=== PATIENT | male | born 1950 | race Caucasian/White ===

== ENCOUNTER 2016-12-14 08:41 | Outpatient (CLI) | payer MEDICARE ==
[2016-12-14 09:23] LABS: Anion Gap 14 mmol/L (10-20); BUN (Urea Nitrogen) 17 mg/dL (8.4-25.7); Calc. Creatinine Clearance 0 mL/min (70-130); Calcium 9.5 mg/dL (7.8-10.44); Carbon Dioxide 35 mmol/L (23-31); Chloride 89 mmol/L (98-107); Estimated GFR-MDRD Greater than 90; Glucose 115 mg/dL (80-115); Magnesium 1.6 mg/dL (1.6-2.6); Potassium 3.1 mmol/L (3.5-5.1); Sodium 135 mmol/L (136-145)
== END 2016-12-14 08:42 | disposition home or self-care (01) ==
LOC: MADLAB 08:41
PROVIDERS: ATTEND Specialist
DX: E87.6 Hypokalemia (principal)
CPT/HCPCS: 36415; 80048; 83735

== ENCOUNTER 2016-12-31 13:52 | Outpatient (CLI) | payer MEDICARE ==
[2016-12-31 14:21] LABS: Anion Gap 17 mmol/L (10-20); BUN (Urea Nitrogen) 11 mg/dL (8.4-25.7); Calc. Creatinine Clearance 0 mL/min (70-130); Calcium 9.7 mg/dL (7.8-10.44); Carbon Dioxide 36 mmol/L (23-31); Chloride 85 mmol/L (98-107); Estimated GFR-MDRD Greater than 90; Glucose 81 mg/dL (80-115); Sodium 135 mmol/L (136-145)
[2016-12-31 16:36] LABS: Potassium 2.8 mmol/L (3.5-5.1)
== END 2016-12-31 13:53 | disposition home or self-care (01) ==
LOC: MADLAB 13:52
PROVIDERS: ATTEND Specialist
DX: I11.0 Hypertensive heart disease with heart failure (principal); I50.9 Heart failure, unspecified; I25.119 Atherosclerotic heart disease of native coronary artery with unspecified angina pectoris; R06.02 Shortness of breath
CPT/HCPCS: 36415; 80048

== ENCOUNTER 2017-01-18 08:44 | Outpatient (CLI) | payer MEDICARE ==
[2017-01-18 09:48] LABS: Anion Gap 19 mmol/L (10-20); BUN (Urea Nitrogen) 11 mg/dL (8.4-25.7); Calc. Creatinine Clearance 0 mL/min (70-130); Calcium 9.6 mg/dL (7.8-10.44); Carbon Dioxide 32 mmol/L (23-31); Chloride 89 mmol/L (98-107); Estimated GFR-MDRD 87; Glucose 111 mg/dL (80-115); Sodium 137 mmol/L (136-145)
[2017-01-18 11:13] LABS: Potassium 2.6 mmol/L (3.5-5.1)
== END 2017-01-18 08:45 | disposition home or self-care (01) ==
LOC: MADLAB 08:44
PROVIDERS: ATTEND Specialist
DX: E87.6 Hypokalemia (principal); Z79.52 Long term (current) use of systemic steroids
CPT/HCPCS: 36415; 80048

== ENCOUNTER 2017-02-01 08:58 | Outpatient (CLI) | payer MEDICARE ==
[2017-02-01 09:59] LABS: Anion Gap 18 mmol/L (10-20); BUN (Urea Nitrogen) 9 mg/dL (8.4-25.7); Calc. Creatinine Clearance 0 mL/min (70-130); Calcium 9.4 mg/dL (7.8-10.44); Carbon Dioxide 26 mmol/L (23-31); Chloride 97 mmol/L (98-107); Estimated GFR-MDRD 76; Glucose 127 mg/dL (80-115); Potassium 4.5 mmol/L (3.5-5.1); Sodium 136 mmol/L (136-145)
== END 2017-02-01 08:59 | disposition home or self-care (01) ==
LOC: MADLAB 08:58
PROVIDERS: ATTEND Specialist
DX: I10 Essential (primary) hypertension (principal); Z79.52 Long term (current) use of systemic steroids
CPT/HCPCS: 36415; 80048

== ENCOUNTER 2017-03-12 07:44 | Outpatient (CLI) | payer MEDICARE ==
[2017-03-12 08:42] LABS: Anion Gap 17 mmol/L (10-20); BUN (Urea Nitrogen) 12 mg/dL (8.4-25.7); Calc. Creatinine Clearance 0 mL/min (70-130); Calcium 9.4 mg/dL (7.8-10.44); Carbon Dioxide 35 mmol/L (23-31); Chloride 87 mmol/L (98-107); Estimated GFR-MDRD 84; Glucose 132 mg/dL (80-115); Sodium 136 mmol/L (136-145)
[2017-03-12 10:15] LABS: Potassium 2.9 mmol/L (3.5-5.1)
== END 2017-03-12 07:45 | disposition home or self-care (01) ==
LOC: MADLAB 07:44
PROVIDERS: ATTEND Specialist
DX: I25.10 Atherosclerotic heart disease of native coronary artery without angina pectoris (principal); I10 Essential (primary) hypertension; R06.02 Shortness of breath; R53.83 Other fatigue
CPT/HCPCS: 36415; 80048

== ENCOUNTER 2017-05-23 08:57 | Outpatient (CLI) | payer MEDICARE ==
[2017-05-23 09:46] LABS: Anion Gap 19 mmol/L (10-20); BUN (Urea Nitrogen) 14 mg/dL (8.4-25.7); Calc. Creatinine Clearance 0 mL/min (70-130); Calcium 9.6 mg/dL (7.8-10.44); Carbon Dioxide 29 mmol/L (23-31); Chloride 90 mmol/L (98-107); Estimated GFR-MDRD 66; Glucose 169 mg/dL (80-115); Potassium 3.2 mmol/L (3.5-5.1); Sodium 135 mmol/L (136-145)
== END 2017-05-23 08:58 | disposition home or self-care (01) ==
LOC: MADLAB 08:57
PROVIDERS: ATTEND Specialist
DX: I10 Essential (primary) hypertension (principal)
CPT/HCPCS: 36415; 80048

== ENCOUNTER 2018-08-07 15:50 | Inpatient (IN) | payer MEDICARE ==
[2018-08-07 17:03] VITALS: BMI 35.4
[2018-08-07] MEDS ORDERED: Ventolin HFA Inhaler 60 PUFF INHALER INH PRN (20:10)
[2018-08-07] MEDS ORDERED: Ondansetron ODT 4 MG TAB PO PRN (20:18)
[2018-08-07] MEDS ORDERED: HYDROcodone/Acetaminophen 5/325 mg Tablet PO PRN (20:18)
[2018-08-07] MEDS ORDERED: Acetaminophen 325 MG TAB PO PRN (20:18)
[2018-08-07] MEDS: Metoprolol Tartrate 25 MG TAB PO SCH (21:25)
[2018-08-07] MEDS: Atorvastatin Calcium 10 MG TAB PO SCH (21:25)
[2018-08-07] MEDS: Pregabalin 100 MG CAP PO SCH (21:25)
[2018-08-07] MEDS: valACYclovir 500 MG TAB PO SCH (21:27)
[2018-08-07] MEDS: Senokot 8.6 MG TAB PO SCH (21:27)
[2018-08-07] MEDS: HYDROcodone/Acetaminophen 5/325 mg Tablet PO PRN (21:49)
[2018-08-08] MEDS ORDERED: Bumetanide 1 MG TAB ONE (09:00)
[2018-08-08] MEDS ORDERED: Potassium Chloride 20 MEQ TAB PO SCH (09:00)
[2018-08-08] MEDS ORDERED: Venlafaxine HCl 37.5 MG TAB ONE (09:00)
[2018-08-08] MEDS ORDERED: Pregabalin 100 MG CAP ONE ×2 (09:00→14:22)
[2018-08-08] MEDS ORDERED: Metoprolol Tartrate 25 MG TAB ONE (09:00)
[2018-08-08] MEDS ORDERED: HYDROcodone/Acetaminophen 5/325 mg Tablet ONE (09:43)
--- NOTE | 2018-08-08 10:27 | HP ---
DATE OF ADMISSION: 08/07/2018 REASON FOR ADMISSION: Transferred from [facility] for skilled therapy, status post repair of right intertrochanteric hip fracture. HISTORY OF PRESENT ILLNESS: This is a pleasant 68-year-old male with past medical history significant for significant cardiovascular disease, COPD with oxygen dependency, hypertension, and diastolic heart failure that presented to [facility] on 07/31/2018 status post fall at home. The patient reportedly has a history of shaking episodes and near syncope that has been evaluated over the last 1-2 years by primary care physicians and multiple specialists physicians. He has no known history of seizures, but reportedly had one of these episodes and fell to the ground. There was no loss of consciousness. The patient was taken to the emergency room and evaluated by Dr. Reynolds who diagnosed the patient with a right intertrochanteric hip fracture and recommended open reduction internal fixation. 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 Maldonado, who cleared the patient for surgery. The patient underwent the surgery on 08/01/2018 without any noted complications. Postoperatively, the patient was noted to have slowed bowel movements. He has been passing gas and states today he still has not had a bowel movement, but denies any abdominal pain or vomiting. A KUB was done while he was in the hospital and showed no obstruction. The patient has been on stool softeners and laxatives and tolerating a diet. The patient also was found to have an elevated white blood cell count postoperatively. No source for infection was not found. Was seen by Dr. Moreno and noted to have herpes zoster rash to right flank. He was started on valtrex for this. He did have an ultrasound of his leg to rule out a DVT at one point, which was also reported as negative, although no copy of this imaging is in the transfer records. The patient was transferred on 08/07/2018 to [facility] for planned physical therapy, status post this surgery. He is noted to be near max assist with transfers at this time and has not been of much to ambulate since his surgery. The patient is seen today and denies any pain. He states he was given a pain pill prior to the transfer. He continues to report that he is passing gas without any issues, but still has not had a bowel movement. He has no complaints at this time. Denies any shortness of breath or chest pain. The patient at baseline lives at home with his and is independent on ADLs. PAST MEDICAL HISTORY: 1. Chronic atrial fibrillation on anticoagulation. 2. History of sick sinus syndrome, status post pacemaker. 3. Three vessel coronary artery disease. 4. Severe chronic obstructive pulmonary disease with oxygen dependency at 2 liters at baseline. 5. Severe pulmonary hypertension. 6. Peripheral vascular disease with prior stenting to the left side. 7. Hyperlipidemia. 8. Diastolic heart failure. 9. Hypertension. 10. Chronic venous insufficiency. 11. Chronic back pain. 12. Severe aortic stenosis, status post TAVR done in 03/2018. 13. Chronic neuropathy. PAST SURGICAL HISTORY: 1. AV node ablation. 2. Multiple previous pacemaker placements. 3. History of lumbar surgery. 4. TAVR with bioprosthetic valve replacement. 5. History of thoracentesis for recurring right pleural effusion. HOME MEDICATIONS: 1. Albuterol inhaled q.6 hours p.r.n. 2. Anora Ellipta 62.5-25 mcg 1 puff daily. 3. Bumex 2 mg twice daily. 4. Metoprolol tartrate 25 mg twice daily. 5. Lyrica 200 mg t.i.d. 6. [place] 10/325 mg every 6 hours p.r.n. pain. 7. Omeprazole 20 mg daily. 8. Potassium chloride 40 mEq t.i.d. 9. Spironolactone 25 mg. 10. Venlafaxine 75 mg. 11. Aspirin 81 mg daily. 12. Pradaxa 150 mg twice daily. 13. Atorvastatin 10 mg once daily. On transfer, the patient was noted to only be on potassium chloride 20 mEq once daily as well as a new medication for Valtrex 1 gram q.8 hours to be given until 08/13/2018. SOCIAL HISTORY: The patient lives in [place], [place] with his . He smoked for 40 years, but quit 4 years ago. 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 He occasionally drinks alcohol, but rarely. No illicit drug use. The patient does have advanced directives with his is power of defense attorney and a current out of hospital DNR in place. FAMILY HISTORY: Noncontributory. REVIEW OF SYSTEMS: A 10-point review of systems is covered with the patient and is negative except as mentioned in history of present illness. PHYSICAL EXAMINATION: VITAL SIGNS: Temperature is 96.8, blood pressure is 118/69, heart rate is 80, respirations 22, O2 saturation is 99% on 3 liters. GENERAL: The patient is alert and oriented, in no apparent distress. He is cooperative and communicative. HEENT: Pupils are equally round and reactive to light. Positive for mild exophthalmus. Sclerae are nonicteric. Oropharynx is moist without erythema or exudates. NECK: Supple, without thyromegaly, lymphadenopathy or carotid bruits. HEART: Regular rate and rhythm with a 2/6 murmur and a loud S2 secondary to mechanical valve. LUNGS: Clear to auscultation bilaterally and nonlabored. ABDOMEN: Soft with positive bowel sounds in all 4 quadrants, nondistended, nontender to palpation. EXTREMITIES: No clubbing, cyanosis or edema. Positive for multiple scattered ecchymosis to bilateral upper extremities. Positive for venous stasis changes to bilateral lower anterior extremities. Positive for delayed cap refill bilateral distal feet which is chronic for the patient. NEUROLOGIC: The patient is alert and oriented x3. Cranial nerves II through XII are grossly intact. He has no focal deficits. He is noted to be generally very weak. LABORATORY AND X-RAY FINDINGS: No labs and imaging are available at this time. ASSESSMENT AND PLAN: 1. Right hip intertrochanteric fracture status post open reduction internal fixation. The patient is postop day #6. His pain is well controlled. We will continue him on [place] 1-2 tabs q.4 hours p.r.n. pain. Physical Therapy and Occupational Therapy have been consulted to work with the patient with a goal of regaining enough strength to return to independent living. He is on chronic thrombosis prophylaxis for his history of atrial fibrillation in a valve replacement. 2. Generalized weakness secondary to recent fracture as above. We will continue with physical therapy and occupational therapy. 3. Herpes zoster. This is diagnosed while he was in the hospital. He is on day 2 of Valtrex. He will continue this at the current dose until 08/13/2018. The patient is on contact precautions and will keep the area lightly covered per recommendations from Dr. Moreno. 4. Significant cardiovascular disease with history of valve replacement earlier this year as well as chronic atrial fibrillation, diastolic heart failure and coronary artery disease. The patient will be continued on his home diuretics, statin, blood pressure medications. Of note, there has been a drastic change in his potassium dose. We will repeat labs this morning so that we can continue to monitor his electrolytes to verify that this is appropriate for him. 5. Chronic obstructive pulmonary disease, which is noted to be severe with chronic O2 dependence. The patient will be continued on his home breathing treatments. He is not in any noted exacerbation at this time. 6. Chronic peripheral vascular disease. This is stable per patient. No recent issues. 7. Chronic back pain. The patient takes Clearmont on an outpatient basis and this will be continued while he is here in the hospital. 8. Constipation with question of postop ileus. A KUB done on 08/03/2018 showed gaseous distention, no blockage. The patient will be continued on a bowel regimen. He is tolerating a diet and passing gas regularly. We will continue to monitor this closely. 9. Deep venous thrombosis prophylaxis. The patient will be continued on his Pradaxa and aspirin which he takes at home. CODE STATUS: The patient is DNR per his request. DISPOSITION: The patient is high risk for rehospitalization given his multiple significant comorbidities in the setting of a recent hip fracture and surgery. We will maximize his medical management and therapy with a goal of having him return home with home health care, but the duration of his stay is yet to be determined. MARTIND
[2018-08-08] MEDS: valACYclovir 500 MG TAB PO SCH ×3 (12:13→21:16)
[2018-08-08] MEDS: Aspirin 81 mg Enteric Coated Tablet PO SCH (12:13)
[2018-08-08] MEDS: Bumetanide 1 MG TAB PO SCH ×2 (12:13→14:51)
[2018-08-08] MEDS: Metoprolol Tartrate 25 MG TAB PO SCH ×2 (12:14→20:01)
[2018-08-08] MEDS: Pregabalin 100 MG CAP PO SCH ×3 (12:14→20:01)
[2018-08-08] MEDS: Spironolactone 25 MG TAB PO SCH (12:15)
[2018-08-08] MEDS: Venlafaxine HCl 37.5 MG TAB PO SCH (12:15)
[2018-08-08 12:18] LABS: ALT (SGPT) 15 U/L (8-55); AST (SGOT) 16 U/L (5-34); Alkaline Phosphatase 124 U/L (40-150); Anion Gap 14 mmol/L (10-20); BUN (Urea Nitrogen) 14 mg/dL (8.4-25.7); Calc. Creatinine Clearance 140 mL/min (70-130); Calcium 8.5 mg/dL (7.8-10.44); Carbon Dioxide 26 mmol/L (23-31); Chloride 95 mmol/L (98-107); Estimated GFR-MDRD Greater than 90; Globulin 3.6 g/dL (2.4-3.5); Glucose 92 mg/dL (80-115); Potassium 3.7 mmol/L (3.5-5.1); Protein, Total 6.6 g/dL (5.8-8.1); Sodium 131 mmol/L (136-145)
[2018-08-08 12:53] LABS: %Neutrophils 72.7 % (42.0-75.0); Hemoglobin 9.7 g/dL (14.0-18.0); Manual Diff?? NO; Mean Corpuscular HGB CONC 30.9 g/dL (32.0-36.0); Mean Corpuscular Hemoglobin 23.3 pg (27.0-31.0); Mean Corpuscular Volume 75.5 fL (78.0-98.0); Mean Platelet Volume 9.7 fL (7.4-10.4); Platelet Count 237 thou/uL (130-400); RBC Distribution Width 17.9 % (11.5-14.5); Red Blood Cell (RBC) Count 4.17 mill/uL (4.70-6.10)
[2018-08-08 12:54] LABS: #Basophils 0.1 thou/uL (0.0-0.2); #Eosinphils 0.8 thou/uL (0.0-0.7); #Lymphocytes 1.7 thou/uL (1.20-3.40); #Monocytes 1.2 thou/uL (0.11-0.59); #Neutrophils 10.2 thou/uL (1.40-6.50); %Eosinophils 5.8 % (0.0-10.0); %Monocytes 8.6 % (0.0-10.0); Microcytosis SLIGHT = 6-15 cells (100X) (0-5/hpf)
[2018-08-08 12:55] LABS: PLT Morphology Comment Appears Adequate; Polychromasia SLIGHT = 2-3 cells (100X) (0-2/hpf)
[2018-08-08] MEDS: Potassium Chloride 20 MEQ TAB PO SCH (17:57)
[2018-08-08] MEDS: Senokot 8.6 MG TAB PO SCH (20:01)
[2018-08-08] MEDS: Atorvastatin Calcium 10 MG TAB PO SCH (20:01)
[2018-08-09] MEDS: valACYclovir 500 MG TAB PO SCH ×3 (05:45→21:31)
[2018-08-09] MEDS: Potassium Chloride 20 MEQ TAB PO SCH ×2 (08:14→17:26)
[2018-08-09] MEDS: Aspirin 81 mg Enteric Coated Tablet PO SCH (08:14)
[2018-08-09] MEDS: Bumetanide 1 MG TAB PO SCH ×2 (08:15→13:56)
[2018-08-09] MEDS: Magnesium Oxide 400 MG TAB PO SCH (08:16)
[2018-08-09] MEDS: Pregabalin 100 MG CAP PO SCH ×3 (08:17→21:31)
[2018-08-09] MEDS: Metoprolol Tartrate 25 MG TAB PO SCH ×2 (08:17→21:30)
[2018-08-09] MEDS: Spironolactone 25 MG TAB PO SCH (08:18)
[2018-08-09] MEDS: Venlafaxine HCl 37.5 MG TAB PO SCH (08:19)
[2018-08-09] MEDS: HYDROcodone/Acetaminophen 5/325 mg Tablet PO PRN ×2 (13:56→22:25)
[2018-08-09] MEDS ORDERED: Mometasone Furoate 120 PUFF 220 MCG INH SCH (18:30)
[2018-08-09] MEDS: Atorvastatin Calcium 10 MG TAB PO SCH (21:29)
[2018-08-09] MEDS: Senokot 8.6 MG TAB PO SCH (21:30)
[2018-08-10] MEDS: valACYclovir 500 MG TAB PO SCH ×3 (05:59→21:00)
[2018-08-10] MEDS: Metoprolol Tartrate 25 MG TAB PO SCH ×2 (08:50→21:00)
[2018-08-10] MEDS: Pregabalin 100 MG CAP PO SCH ×3 (08:50→21:00)
[2018-08-10] MEDS: Potassium Chloride 20 MEQ TAB PO SCH ×2 (08:50→17:30)
[2018-08-10] MEDS: Bumetanide 1 MG TAB PO SCH ×2 (08:50→13:35)
[2018-08-10] MEDS: Spironolactone 25 MG TAB PO SCH (08:52)
[2018-08-10] MEDS: Venlafaxine HCl 37.5 MG TAB PO SCH (08:52)
[2018-08-10] MEDS: Magnesium Oxide 400 MG TAB PO SCH (08:53)
[2018-08-10] MEDS: Aspirin 81 mg Enteric Coated Tablet PO SCH (08:53)
[2018-08-10] MEDS: Atorvastatin Calcium 10 MG TAB PO SCH (21:00)
[2018-08-10] MEDS: Senokot 8.6 MG TAB PO SCH (21:00)
[2018-08-11] MEDS: HYDROcodone/Acetaminophen 5/325 mg Tablet PO PRN ×2 (01:47→10:57)
[2018-08-11] MEDS: valACYclovir 500 MG TAB PO SCH ×3 (05:30→21:34)
[2018-08-11] MEDS: Potassium Chloride 20 MEQ TAB PO SCH ×2 (08:52→17:04)
[2018-08-11] MEDS: Bumetanide 1 MG TAB PO SCH ×2 (08:52→14:33)
[2018-08-11] MEDS: Magnesium Oxide 400 MG TAB PO SCH (08:52)
[2018-08-11] MEDS: Metoprolol Tartrate 25 MG TAB PO SCH ×2 (08:53→21:35)
[2018-08-11] MEDS: Pregabalin 100 MG CAP PO SCH ×3 (08:53→21:32)
[2018-08-11] MEDS: Aspirin 81 mg Enteric Coated Tablet PO SCH (08:54)
[2018-08-11] MEDS: Venlafaxine HCl 37.5 MG TAB PO SCH (08:54)
[2018-08-11] MEDS: Spironolactone 25 MG TAB PO SCH (08:54)
[2018-08-11] MEDS ORDERED: Clindamycin 150 MG CAP PO SCH (13:00)
[2018-08-11] MEDS ORDERED: Polyethylene Glycol 3350 17 GM Packet PO SCH ×2 (13:00)
[2018-08-11] MEDS: Clindamycin 150 MG CAP PO SCH ×2 (13:23→21:34)
[2018-08-11] MEDS: Bisacodyl 10 MG SUPP PR PRN (14:09)
[2018-08-11] MEDS: Senokot 8.6 MG TAB PO SCH (21:35)
[2018-08-11] MEDS: Atorvastatin Calcium 10 MG TAB PO SCH (21:37)
[2018-08-12] MEDS: Clindamycin 150 MG CAP PO SCH ×3 (05:24→22:03)
[2018-08-12] MEDS: valACYclovir 500 MG TAB PO SCH ×3 (05:24→22:03)
[2018-08-12 05:50] LABS: Anion Gap 18 mmol/L (10-20); BUN (Urea Nitrogen) 11 mg/dL (8.4-25.7); Calc. Creatinine Clearance 143 mL/min (70-130); Calcium 9.2 mg/dL (7.8-10.44); Carbon Dioxide 23 mmol/L (23-31); Chloride 93 mmol/L (98-107); Estimated GFR-MDRD Greater than 90; Glucose 101 mg/dL (80-115); Potassium 4.1 mmol/L (3.5-5.1); Sodium 130 mmol/L (136-145)
[2018-08-12 05:58] LABS: #Basophils 0.1 thou/uL (0.0-0.2); #Eosinphils 0.2 thou/uL (0.0-0.7); #Lymphocytes 1.3 thou/uL (1.20-3.40); #Monocytes 1.1 thou/uL (0.11-0.59); %Basophils 0.4 % (0.0-1.0); %Eosinophils 1.3 % (0.0-10.0); %Lymphocytes 8.3 % (21.0-51.0); %Monocytes 7.1 % (0.0-10.0); %Neutrophils 82.9 % (42.0-75.0); Hemoglobin 10.7 g/dL (14.0-18.0); Hypochromia SLIGHT = 6-15 cells (100X) (0-5/hpf); MDiff Complete? YES; Macrocytosis SLIGHT = 6-15 cells (100X) (0-5/hpf); Mean Corpuscular HGB CONC 30.5 g/dL (32.0-36.0); Mean Corpuscular Hemoglobin 23.5 pg (27.0-31.0); Mean Corpuscular Volume 77.2 fL (78.0-98.0); Mean Platelet Volume 8.2 fL (7.4-10.4); Microcytosis SLIGHT = 6-15 cells (100X) (0-5/hpf); PLT Morphology Comment Appears Adequate; Platelet Count 280 thou/uL (130-400); RBC Distribution Width 18.6 % (11.5-14.5); RBC Morphology Abnnormal; Red Blood Cell (RBC) Count 4.55 mill/uL (4.70-6.10); White Blood Cell (WBC) Count 15.7 thou/uL (4.8-10.8)
[2018-08-12] MEDS: Bumetanide 1 MG TAB PO SCH ×2 (08:20→14:23)
[2018-08-12] MEDS: Aspirin 81 mg Enteric Coated Tablet PO SCH (08:20)
[2018-08-12] MEDS: Pregabalin 100 MG CAP PO SCH ×3 (08:20→20:31)
[2018-08-12] MEDS: Potassium Chloride 20 MEQ TAB PO SCH ×2 (08:20→17:36)
[2018-08-12] MEDS: Polyethylene Glycol 3350 17 GM Packet PO SCH (08:20)
[2018-08-12] MEDS: Venlafaxine HCl 37.5 MG TAB PO SCH (08:21)
[2018-08-12] MEDS: Metoprolol Tartrate 25 MG TAB PO SCH ×2 (08:22→20:30)
[2018-08-12] MEDS: Magnesium Oxide 400 MG TAB PO SCH (08:22)
[2018-08-12] MEDS: Spironolactone 25 MG TAB PO SCH (08:22)
[2018-08-12] MEDS: Bisacodyl 10 MG SUPP PR PRN (09:51)
[2018-08-12] MEDS ORDERED: Proctozone-HC 2.5% Cream 30 GM TUBE PR PRN (13:50)
[2018-08-12] MEDS ORDERED: Fleet Enema 133 ML BOT FS PRN (13:53)
--- NOTE | 2018-08-12 20:08 | RAD ---
ABDOMEN ONE VIEW: 08/12/18 HISTORY: Abdominal pain and distention. FINDINGS: Gas is apparent throughout the colon. Small bowel gas pattern is nonspecific. Pelvis is excluded fro m the image. Metallic clips overlie the gallbladder fossa. Smoothly marginated opacity extends along the right costophrenic angle. IMPRESSION: Nonspecific bowel gas pattern. Right pleural fluid. Status post cholecystectomy. POS: [facility]
[2018-08-12] MEDS: Senokot 8.6 MG TAB PO SCH (20:30)
[2018-08-12] MEDS: Atorvastatin Calcium 10 MG TAB PO SCH (20:30)
[2018-08-13 05:24] LABS: Hemoglobin 10.3 g/dL (14.0-18.0); Platelet Count 295 thou/uL (130-400)
[2018-08-13] MEDS: valACYclovir 500 MG TAB PO SCH ×3 (05:25→21:34)
[2018-08-13] MEDS: Clindamycin 150 MG CAP PO SCH ×3 (05:26→21:34)
[2018-08-13 05:27] LABS: Calc. Creatinine Clearance 138 mL/min (70-130); Estimated GFR-MDRD Greater than 90
[2018-08-13] MEDS: Bumetanide 1 MG TAB PO SCH ×2 (08:24→13:55)
[2018-08-13] MEDS: Pregabalin 100 MG CAP PO SCH ×3 (08:25→20:30)
[2018-08-13] MEDS: Polyethylene Glycol 3350 17 GM Packet PO SCH (08:25)
[2018-08-13] MEDS: Venlafaxine HCl 37.5 MG TAB PO SCH (08:26)
[2018-08-13] MEDS: Potassium Chloride 20 MEQ TAB PO SCH ×2 (08:26→15:57)
[2018-08-13] MEDS: Magnesium Oxide 400 MG TAB PO SCH (08:26)
[2018-08-13] MEDS: Aspirin 81 mg Enteric Coated Tablet PO SCH (08:26)
[2018-08-13] MEDS: Spironolactone 25 MG TAB PO SCH (08:26)
[2018-08-13] MEDS: Metoprolol Tartrate 25 MG TAB PO SCH ×2 (08:26→20:30)
[2018-08-13] MEDS: Atorvastatin Calcium 10 MG TAB PO SCH (20:29)
[2018-08-13] MEDS: Senokot 8.6 MG TAB PO SCH (20:30)
[2018-08-14] MEDS: Clindamycin 150 MG CAP PO SCH ×3 (05:48→22:07)
[2018-08-14] MEDS: Venlafaxine HCl 37.5 MG TAB PO SCH (09:09)
[2018-08-14] MEDS: Polyethylene Glycol 3350 17 GM Packet PO SCH (09:09)
[2018-08-14] MEDS: Potassium Chloride 20 MEQ TAB PO SCH ×2 (09:10→17:11)
[2018-08-14] MEDS: Pregabalin 100 MG CAP PO SCH ×3 (09:10→20:51)
[2018-08-14] MEDS: Magnesium Oxide 400 MG TAB PO SCH (09:11)
[2018-08-14] MEDS: Metoprolol Tartrate 25 MG TAB PO SCH ×2 (09:11→20:50)
[2018-08-14] MEDS: Aspirin 81 mg Enteric Coated Tablet PO SCH (09:11)
[2018-08-14] MEDS: Bumetanide 1 MG TAB PO SCH (09:11)
[2018-08-14] MEDS: Spironolactone 25 MG TAB PO SCH (09:14)
[2018-08-14] MEDS: HYDROcodone/Acetaminophen 5/325 mg Tablet PO PRN (09:23)
[2018-08-14] MEDS: Atorvastatin Calcium 10 MG TAB PO SCH (20:50)
[2018-08-14] MEDS: Senokot 8.6 MG TAB PO SCH (20:51)
[2018-08-15] MEDS: Clindamycin 150 MG CAP PO SCH ×3 (05:28→22:36)
[2018-08-15 05:37] LABS: ALT (SGPT) 7 U/L (8-55); AST (SGOT) 12 U/L (5-34); Albumin 3.1 g/dL (3.4-4.8); Alkaline Phosphatase 144 U/L (40-150); Anion Gap 14 mmol/L (10-20); BUN (Urea Nitrogen) 14 mg/dL (8.4-25.7); Bilirubin, Total 1.1 mg/dL (0.2-1.2); Calc. Creatinine Clearance 136 mL/min (70-130); Calcium 9.1 mg/dL (7.8-10.44); Carbon Dioxide 26 mmol/L (23-31); Chloride 93 mmol/L (98-107); Estimated GFR-MDRD Greater than 90; Globulin 3.7 g/dL (2.4-3.5); Glucose 94 mg/dL (80-115); Potassium 3.9 mmol/L (3.5-5.1); Protein, Total 6.8 g/dL (5.8-8.1); Sodium 129 mmol/L (136-145)
[2018-08-15 05:50] LABS: #Basophils 0.1 thou/uL (0.0-0.2); #Eosinphils 0.3 thou/uL (0.0-0.7); #Lymphocytes 1.4 thou/uL (1.20-3.40); #Monocytes 0.8 thou/uL (0.11-0.59); #Neutrophils 8.1 thou/uL (1.40-6.50); %Basophils 0.8 % (0.0-1.0); %Eosinophils 2.9 % (0.0-10.0); %Lymphocytes 12.9 % (21.0-51.0); %Monocytes 7.2 % (0.0-10.0); %Neutrophils 76.2 % (42.0-75.0); Anisocytosis MODERATE=16-30 cells (100X) (0-5/hpf); Hemoglobin 9.4 g/dL (14.0-18.0); Mean Corpuscular HGB CONC 30.5 g/dL (32.0-36.0); Mean Corpuscular Hemoglobin 23.1 pg (27.0-31.0); Mean Corpuscular Volume 75.6 fL (78.0-98.0); Mean Platelet Volume 7.8 fL (7.4-10.4); Microcytosis MODERATE=15-30 cells (100X) (0-5/hpf); Platelet Count 294 thou/uL (130-400); RBC Distribution Width 19.5 % (11.5-14.5); Red Blood Cell (RBC) Count 4.06 mill/uL (4.70-6.10); White Blood Cell (WBC) Count 10.6 thou/uL (4.8-10.8)
[2018-08-15] MEDS: Polyethylene Glycol 3350 17 GM Packet PO SCH (08:49)
[2018-08-15] MEDS: Potassium Chloride 20 MEQ TAB PO SCH ×3 (08:50→17:06)
[2018-08-15] MEDS: Pregabalin 100 MG CAP PO SCH ×4 (08:54→20:34)
[2018-08-15] MEDS: Metoprolol Tartrate 25 MG TAB PO SCH ×3 (08:54→20:34)
[2018-08-15] MEDS: Venlafaxine HCl 37.5 MG TAB PO SCH ×2 (08:55→11:12)
[2018-08-15] MEDS: Aspirin 81 mg Enteric Coated Tablet PO SCH ×2 (08:55→11:13)
[2018-08-15] MEDS: Bumetanide 1 MG TAB PO SCH ×2 (08:55→11:14)
[2018-08-15] MEDS: Spironolactone 25 MG TAB PO SCH ×2 (08:55→11:13)
[2018-08-15] MEDS: Magnesium Oxide 400 MG TAB PO SCH ×2 (08:56→11:13)
[2018-08-15] MEDS: HYDROcodone/Acetaminophen 5/325 mg Tablet PO PRN (11:11)
[2018-08-15] MEDS: Atorvastatin Calcium 10 MG TAB PO SCH (20:34)
[2018-08-15] MEDS: Senokot 8.6 MG TAB PO SCH (20:35)
[2018-08-16] MEDS: Clindamycin 150 MG CAP PO SCH ×3 (05:42→22:03)
[2018-08-16] MEDS: Potassium Chloride 20 MEQ TAB PO SCH ×2 (09:50→17:10)
[2018-08-16] MEDS: Bumetanide 1 MG TAB PO SCH (09:50)
[2018-08-16] MEDS: Venlafaxine HCl 37.5 MG TAB PO SCH (09:51)
[2018-08-16] MEDS: Pregabalin 100 MG CAP PO SCH ×3 (09:51→20:10)
[2018-08-16] MEDS: Spironolactone 25 MG TAB PO SCH (09:52)
[2018-08-16] MEDS: Metoprolol Tartrate 25 MG TAB PO SCH ×2 (09:52→20:10)
[2018-08-16] MEDS: Magnesium Oxide 400 MG TAB PO SCH (09:52)
[2018-08-16] MEDS: Aspirin 81 mg Enteric Coated Tablet PO SCH (09:52)
[2018-08-16] MEDS: Polyethylene Glycol 3350 17 GM Packet PO SCH (09:53)
[2018-08-16] MEDS: Atorvastatin Calcium 10 MG TAB PO SCH (20:09)
[2018-08-16] MEDS: Senokot 8.6 MG TAB PO SCH (20:11)
[2018-08-17] MEDS: Clindamycin 150 MG CAP PO SCH (05:33)
[2018-08-17 07:58] LABS: Hemoglobin 10.3 g/dL (14.0-18.0); Platelet Count 295 thou/uL (130-400)
[2018-08-17] MEDS: Magnesium Oxide 400 MG TAB PO SCH (08:50)
[2018-08-17] MEDS: Spironolactone 25 MG TAB PO SCH (08:50)
[2018-08-17] MEDS: Venlafaxine HCl 37.5 MG TAB PO SCH (08:50)
[2018-08-17] MEDS: Bumetanide 1 MG TAB PO SCH (08:50)
[2018-08-17] MEDS: Potassium Chloride 20 MEQ TAB PO SCH ×2 (08:51→17:11)
[2018-08-17] MEDS: Metoprolol Tartrate 25 MG TAB PO SCH ×2 (08:51→21:07)
[2018-08-17] MEDS: Aspirin 81 mg Enteric Coated Tablet PO SCH (08:51)
[2018-08-17] MEDS: Pregabalin 100 MG CAP PO SCH ×3 (08:52→21:07)
[2018-08-17] MEDS: Polyethylene Glycol 3350 17 GM Packet PO SCH (08:52)
[2018-08-17] MEDS: Atorvastatin Calcium 10 MG TAB PO SCH (21:06)
[2018-08-17] MEDS: Sulfameth/Trimethoprim DS 800-160mg TAB PO SCH (21:08)
[2018-08-17] MEDS: Senokot 8.6 MG TAB PO SCH (21:08)
[2018-08-18] MEDS: Bumetanide 1 MG TAB PO SCH (08:24)
[2018-08-18] MEDS: Potassium Chloride 20 MEQ TAB PO SCH ×2 (08:25→17:14)
[2018-08-18] MEDS: Spironolactone 25 MG TAB PO SCH (08:26)
[2018-08-18] MEDS: Sulfameth/Trimethoprim DS 800-160mg TAB PO SCH ×2 (08:26→20:21)
[2018-08-18] MEDS: Magnesium Oxide 400 MG TAB PO SCH (08:26)
[2018-08-18] MEDS: Metoprolol Tartrate 25 MG TAB PO SCH ×2 (08:26→20:19)
[2018-08-18] MEDS: Aspirin 81 mg Enteric Coated Tablet PO SCH (08:26)
[2018-08-18] MEDS: Polyethylene Glycol 3350 17 GM Packet PO SCH (08:26)
[2018-08-18] MEDS: Venlafaxine HCl 37.5 MG TAB PO SCH (08:26)
[2018-08-18] MEDS: Pregabalin 100 MG CAP PO SCH ×3 (08:27→20:20)
[2018-08-18] MEDS: Atorvastatin Calcium 10 MG TAB PO SCH (20:19)
[2018-08-18] MEDS: Senokot 8.6 MG TAB PO SCH (20:21)
[2018-08-19] MEDS: HYDROcodone/Acetaminophen 5/325 mg Tablet PO PRN (01:28)
[2018-08-19 07:23] LABS: ALT (SGPT) 8 U/L (8-55); AST (SGOT) 12 U/L (5-34); Alkaline Phosphatase 148 U/L (40-150); Anion Gap 11 mmol/L (10-20); BUN (Urea Nitrogen) 13 mg/dL (8.4-25.7); Bilirubin, Total 0.6 mg/dL (0.2-1.2); Calc. Creatinine Clearance 130 mL/min (70-130); Carbon Dioxide 31 mmol/L (23-31); Chloride 94 mmol/L (98-107); Estimated GFR-MDRD 90; Globulin 3.7 g/dL (2.4-3.5); Glucose 94 mg/dL (80-115); Potassium 4.2 mmol/L (3.5-5.1); Protein, Total 6.7 g/dL (5.8-8.1); Sodium 132 mmol/L (136-145)
[2018-08-19 07:43] LABS: #Basophils 0.1 thou/uL (0.0-0.2); #Eosinphils 0.3 thou/uL (0.0-0.7); #Lymphocytes 1.9 thou/uL (1.20-3.40); #Neutrophils 7.2 thou/uL (1.40-6.50); %Basophils 0.9 % (0.0-1.0); %Eosinophils 2.8 % (0.0-10.0); %Monocytes 9.4 % (0.0-10.0); %Neutrophils 68.8 % (42.0-75.0); Hemoglobin 9.6 g/dL (14.0-18.0); Mean Corpuscular HGB CONC 30.3 g/dL (32.0-36.0); Mean Corpuscular Volume 75.9 fL (78.0-98.0); Mean Platelet Volume 7.4 fL (7.4-10.4); Platelet Count 264 thou/uL (130-400); RBC Distribution Width 19.8 % (11.5-14.5); Red Blood Cell (RBC) Count 4.18 mill/uL (4.70-6.10); White Blood Cell (WBC) Count 10.4 thou/uL (4.8-10.8)
[2018-08-19 08:12] LABS: Anisocytosis SLIGHT = 6-15 cells (100X) (0-5/hpf); PLT Morphology Comment Appears Adequate; Poikilocytosis SLIGHT = 6-15 cells (100X) (0-5/hpf)
[2018-08-19] MEDS: Venlafaxine HCl 37.5 MG TAB PO SCH (09:09)
[2018-08-19] MEDS: Aspirin 81 mg Enteric Coated Tablet PO SCH (09:10)
[2018-08-19] MEDS: Sulfameth/Trimethoprim DS 800-160mg TAB PO SCH ×2 (09:10→20:42)
[2018-08-19] MEDS: Potassium Chloride 20 MEQ TAB PO SCH ×2 (09:10→17:08)
[2018-08-19] MEDS: Bumetanide 1 MG TAB PO SCH (09:10)
[2018-08-19] MEDS: Metoprolol Tartrate 25 MG TAB PO SCH ×2 (09:11→20:41)
[2018-08-19] MEDS: Pregabalin 100 MG CAP PO SCH ×3 (09:11→20:41)
[2018-08-19] MEDS: Spironolactone 25 MG TAB PO SCH (09:11)
[2018-08-19] MEDS: Magnesium Oxide 400 MG TAB PO SCH (09:11)
[2018-08-19] MEDS: Polyethylene Glycol 3350 17 GM Packet PO SCH (09:12)
[2018-08-19] MEDS: Atorvastatin Calcium 10 MG TAB PO SCH (20:40)
[2018-08-19] MEDS: Senokot 8.6 MG TAB PO SCH (20:42)
[2018-08-20] MEDS: Bumetanide 1 MG TAB PO SCH (09:08)
[2018-08-20] MEDS: Venlafaxine HCl 37.5 MG TAB PO SCH (09:09)
[2018-08-20] MEDS: Spironolactone 25 MG TAB PO SCH (09:10)
[2018-08-20] MEDS: Sulfameth/Trimethoprim DS 800-160mg TAB PO SCH ×2 (09:10→20:20)
[2018-08-20] MEDS: Magnesium Oxide 400 MG TAB PO SCH (09:10)
[2018-08-20] MEDS: Pregabalin 100 MG CAP PO SCH ×3 (09:10→20:19)
[2018-08-20] MEDS: Potassium Chloride 20 MEQ TAB PO SCH ×2 (09:12→17:07)
[2018-08-20] MEDS: Aspirin 81 mg Enteric Coated Tablet PO SCH (09:12)
[2018-08-20] MEDS: Metoprolol Tartrate 25 MG TAB PO SCH ×2 (09:13→20:18)
[2018-08-20] MEDS: Polyethylene Glycol 3350 17 GM Packet PO SCH (09:14)
[2018-08-20] MEDS: Atorvastatin Calcium 10 MG TAB PO SCH (20:18)
[2018-08-20] MEDS: Senokot 8.6 MG TAB PO SCH (20:20)
[2018-08-21 05:32] LABS: Calc. Creatinine Clearance 135 mL/min (70-130); Estimated GFR-MDRD Greater than 90; Hemoglobin 9.5 g/dL (14.0-18.0); Platelet Count 255 thou/uL (130-400)
[2018-08-21] MEDS: Bumetanide 1 MG TAB PO SCH (08:41)
[2018-08-21] MEDS: Polyethylene Glycol 3350 17 GM Packet PO SCH (08:41)
[2018-08-21] MEDS: Venlafaxine HCl 37.5 MG TAB PO SCH (08:41)
[2018-08-21] MEDS: Metoprolol Tartrate 25 MG TAB PO SCH ×2 (08:41→20:19)
[2018-08-21] MEDS: Aspirin 81 mg Enteric Coated Tablet PO SCH (08:42)
[2018-08-21] MEDS: Pregabalin 100 MG CAP PO SCH ×3 (08:42→20:17)
[2018-08-21] MEDS: Sulfameth/Trimethoprim DS 800-160mg TAB PO SCH ×2 (08:43→20:18)
[2018-08-21] MEDS: Magnesium Oxide 400 MG TAB PO SCH (08:44)
[2018-08-21] MEDS: Potassium Chloride 20 MEQ TAB PO SCH ×2 (08:44→17:12)
[2018-08-21] MEDS: Spironolactone 25 MG TAB PO SCH (08:44)
[2018-08-21] MEDS: HYDROcodone/Acetaminophen 5/325 mg Tablet PO PRN (10:48)
[2018-08-21] MEDS: Atorvastatin Calcium 10 MG TAB PO SCH (20:19)
[2018-08-21] MEDS: Senokot 8.6 MG TAB PO SCH (20:19)
[2018-08-22] MEDS: Venlafaxine HCl 37.5 MG TAB PO SCH (09:31)
[2018-08-22] MEDS: Sulfameth/Trimethoprim DS 800-160mg TAB PO SCH ×2 (09:31→20:21)
[2018-08-22] MEDS: Potassium Chloride 20 MEQ TAB PO SCH ×2 (09:31→17:54)
[2018-08-22] MEDS: Aspirin 81 mg Enteric Coated Tablet PO SCH (09:31)
[2018-08-22] MEDS: Spironolactone 25 MG TAB PO SCH (09:31)
[2018-08-22] MEDS: Pregabalin 100 MG CAP PO SCH ×3 (09:32→20:20)
[2018-08-22] MEDS: Metoprolol Tartrate 25 MG TAB PO SCH ×2 (09:32→20:21)
[2018-08-22] MEDS: Bumetanide 1 MG TAB PO SCH (09:32)
[2018-08-22] MEDS: Polyethylene Glycol 3350 17 GM Packet PO SCH (09:32)
[2018-08-22] MEDS: Magnesium Oxide 400 MG TAB PO SCH (09:32)
[2018-08-22] MEDS: HYDROcodone/Acetaminophen 5/325 mg Tablet PO PRN ×2 (09:39→23:35)
[2018-08-22] MEDS ORDERED: Iopamidol 370 76% 125 ML VIAL FS ONE (12:42)
[2018-08-22 20:20] VITALS: BP 115/61; TEMP 97.7
[2018-08-22] MEDS: Senokot 8.6 MG TAB PO SCH (20:21)
[2018-08-22] MEDS: Atorvastatin Calcium 10 MG TAB PO SCH (20:22)
[2018-08-23 01:01] LABS: ALT (SGPT) 11 U/L (8-55); AST (SGOT) 15 U/L (5-34); Albumin 3.3 g/dL (3.4-4.8); Alkaline Phosphatase 173 U/L (40-150); Anion Gap 13 mmol/L (10-20); BUN (Urea Nitrogen) 12 mg/dL (8.4-25.7); Bilirubin, Total 0.5 mg/dL (0.2-1.2); Calc. Creatinine Clearance 124 mL/min (70-130); Calcium 9.1 mg/dL (7.8-10.44); Carbon Dioxide 29 mmol/L (23-31); Chloride 94 mmol/L (98-107); Estimated GFR-MDRD 86; Globulin 3.7 g/dL (2.4-3.5); Glucose 132 mg/dL (80-115); Potassium 5.3 mmol/L (3.5-5.1); Sodium 131 mmol/L (136-145)
[2018-08-23 01:19] LABS: #Basophils 0.1 thou/uL (0.0-0.2); #Eosinphils 0.3 thou/uL (0.0-0.7); #Lymphocytes 1.9 thou/uL (1.20-3.40); #Neutrophils 6.8 thou/uL (1.40-6.50); %Basophils 0.7 % (0.0-1.0); %Eosinophils 3.2 % (0.0-10.0); %Lymphocytes 18.8 % (21.0-51.0); %Monocytes 9.9 % (0.0-10.0); %Neutrophils 67.4 % (42.0-75.0); Anisocytosis SLIGHT = 6-15 cells (100X) (0-5/hpf); Hemoglobin 9.3 g/dL (14.0-18.0); Hypochromia MODERATE=16-30 cells (100X) (0-5/hpf); MDiff Complete? YES; Macrocytosis SLIGHT = 6-15 cells (100X) (0-5/hpf); Mean Corpuscular HGB CONC 29.5 g/dL (32.0-36.0); Mean Corpuscular Hemoglobin 22.9 pg (27.0-31.0); Mean Corpuscular Volume 77.5 fL (78.0-98.0); Mean Platelet Volume 8.2 fL (7.4-10.4); Microcytosis SLIGHT = 6-15 cells (100X) (0-5/hpf); PLT Morphology Comment Appears Adequate; Platelet Count 299 thou/uL (130-400); Poikilocytosis SLIGHT = 6-15 cells (100X) (0-5/hpf); RBC Distribution Width 20.5 % (11.5-14.5); RBC Morphology Abnormal; Red Blood Cell (RBC) Count 4.06 mill/uL (4.70-6.10); White Blood Cell (WBC) Count 10.1 thou/uL (4.8-10.8)
--- NOTE | 2018-08-23 09:23 | CT ---
PRELIMINARY REPORT/[facility]/EMERGENTY AFTER-HOURS PROCEDURE CT Angiography Chest With Intravenous Contrast EXAM DATE/TIME: 08/23/2018 2:07 AM CLINICAL HISTORY: 68 years old, male; Signs and symptoms; Dyspnea and shortness of breath TECHNIQUE: Axial computed tomographic angiography images of the chest with intravenous contrast using CT angiogr aphy protocol. Coronal and sagittal reformatted images were created and reviewed. MIP reconstructed images were created and reviewed. CONTRAST: 120 ml of ISOVUE 370 administered intravenously. COMPARISON: No relevant prior studies available. FINDINGS: Pulmonary arteries: Adequate contrast enhancement of the pulmonary arteries. Aorta: No evidence of thoracic aortic dissection. Chronic atherosclerotic calcification of the vascul ature. Lungs: Azygous lobe, normal variant. No evidence endobronchial lesion. Mild-moderate right middle and bilateral lower lobe air space opacity-atelectasis. Pleural space: Moderate loculated appearing right pleural effusion. Mild-moderate left pleural effusi on. No evidence of pneumothorax. Heart: Heart appears prominent overall size, aortic valve prosthesis and metallic density in right ve ntricle. Prominent mitral valve annulus calcification. Bones/joints: Musculoskeletal structures appear intact. Multi-level degenerative changes involve the thoracic spine. Soft tissues: Unremarkable. Lymph nodes: Multiple 1-2 cm mediastinal lymph nodes. IMPRESSION: 1. No evidence of pulmonary embolism. 2. No evidence of thoracic aortic dissection. 3. Moderate loculated appearing right pleural effusion. 4. Mild-moderate left pleural effusion. 5. Mild-moderate right middle and bilateral lower lobe air space opacity-atelectasis. 6. Mild mediastinal lymphadenopathy. 7. Prominent heart size, aortic valve prosthesis and metallic density in right ventricle. Please serafin elate with patients clinical/cardiac history. Thank you for allowing us to participate in the care of your patient. Dictated and Authenticated by: Juan Roman MD 08/23/2018 3:52 AM Central Time ([place] & [place]) FINAL REPORT CTA CHEST WITH CONTRAST: Date: 08/23/18 Multiple axial tomograms obtained with multiplanar reconstruction and 3D postprocessing following pul monary angio protocol. No evidence of pulmonary embolus. Bilateral pleural effusions and bibasilar atelectasis, more promine nt on the right. I am in agreement with the preliminary report issued by [facility]. POS: [facility]
--- NOTE | 2018-08-23 10:12 | RAD ---
PORTABLE CHEST: Date: 08/23/18 PROVIDED CLINICAL HISTORY: Shortness of breath. FINDINGS: No comparisons. The cardiac silhouette is partially obscured, but appears enlarged. Bibasilar pleural parenchymal opa cities and diffuse prominence of the pulmonary vasculature and pulmonary interstitium are noted. Evid ence for probable azygos fissure with possible azygos lobe consolidation. IMPRESSION: Findings suggesting congestive failure with bibasilar pleural parenchymal opacity and possible right azygos consolidation or edema. Please correlate with subsequently performed CT pulmonary angiogram. POS: [facility]
== END 2018-08-23 06:15 | disposition short-term general hospital (02) | DRG 560 ==
LOC: MADMS 16:26
PROVIDERS: ADMIT Family Medicine; ATTEND Family Medicine
DX: S72.141D Displaced intertrochanteric fracture of right femur, subsequent encounter for closed fracture with routine healing (principal); I50.32 Chronic diastolic (congestive) heart failure; K56.7 Ileus, unspecified; E87.1 Hypo-osmolality and hyponatremia; J44.9 Chronic obstructive pulmonary disease, unspecified; Z99.81 Dependence on supplemental oxygen; I11.0 Hypertensive heart disease with heart failure; B02.9 Zoster without complications; I48.2 Chronic atrial fibrillation; Z79.01 Long term (current) use of anticoagulants; I25.10 Atherosclerotic heart disease of native coronary artery without angina pectoris; I27.20 Pulmonary hypertension, unspecified; I73.9 Peripheral vascular disease, unspecified; E78.5 Hyperlipidemia, unspecified; I87.2 Venous insufficiency (chronic) (peripheral); G89.29 Other chronic pain; M54.9 Dorsalgia, unspecified; G62.89 Other specified polyneuropathies; Z95.2 Presence of prosthetic heart valve; K59.00 Constipation, unspecified; Z66 Do not resuscitate; T81.49XD Infection following a procedure, other surgical site, subsequent encounter; B95.62 Methicillin resistant Staphylococcus aureus infection as the cause of diseases classified elsewhere; D64.9 Anemia, unspecified; D72.829 Elevated white blood cell count, unspecified; R09.02 Hypoxemia
CPT/HCPCS: 36415; 71045; 71275; 74018; 80048; 80053; 82565; 83880; 85014; 85018; 85025; 85049; 85379; 87070; 87077; 87186; 87205; 93005; 93010; G8978-GP-CM; G8979-GP-CJ; G8987-GO-CM; G8988-GO-CI; J7620; Q0162

== ENCOUNTER 2018-08-27 18:39 | Inpatient (IN) | payer MEDICARE ==
[2018-08-27] MEDS ORDERED: Acetaminophen 325 MG TAB PO PRN (21:11)
[2018-08-27] MEDS ORDERED: HYDROcodone/Acetaminophen 5/325 mg Tablet PO PRN (21:11)
[2018-08-27] MEDS ORDERED: Mag-Al Plus 1200 MG/1200 MG/120 MG/30 ML UDCUP PO PRN (21:46)
[2018-08-27] MEDS ORDERED: Nitroglycerin 0.4 MG TAB (25 Tab Bottle) SL PRN (21:51)
[2018-08-27] MEDS: HYDROcodone/Acetaminophen 5/325 mg Tablet PO PRN (22:00)
[2018-08-28 05:33] LABS: Anisocytosis SLIGHT = 6-15 cells (100X) (0-5/hpf); Hemoglobin 9.4 g/dL (14.0-18.0); Hypochromia MODERATE=16-30 cells (100X) (0-5/hpf); MDiff Complete? YES; Macrocytosis SLIGHT = 6-15 cells (100X) (0-5/hpf); Mean Corpuscular Hemoglobin 23.3 pg (27.0-31.0); Mean Corpuscular Volume 75.1 fL (78.0-98.0); Mean Platelet Volume 8.1 fL (7.4-10.4); Microcytosis SLIGHT = 6-15 cells (100X) (0-5/hpf); PLT Morphology Comment Appears Adequate; Platelet Count 285 thou/uL (130-400); Poikilocytosis SLIGHT = 6-15 cells (100X) (0-5/hpf); RBC Distribution Width 18.5 % (11.5-14.5); RBC Morphology Abnormal; Red Blood Cell (RBC) Count 4.05 mill/uL (4.70-6.10); White Blood Cell (WBC) Count 8.6 thou/uL (4.8-10.8)
[2018-08-28 05:37] LABS: ALT (SGPT) 11 U/L (8-55); AST (SGOT) 17 U/L (5-34); Alkaline Phosphatase 170 U/L (40-150); Anion Gap 17 mmol/L (10-20); BUN (Urea Nitrogen) 12 mg/dL (8.4-25.7); Bilirubin, Total 0.6 mg/dL (0.2-1.2); Calc. Creatinine Clearance 143 mL/min (70-130); Calcium 8.7 mg/dL (7.8-10.44); Carbon Dioxide 27 mmol/L (23-31); Chloride 95 mmol/L (98-107); Estimated GFR-MDRD Greater than 90; Globulin 3.9 g/dL (2.4-3.5); Glucose 157 mg/dL (80-115); Potassium 3.5 mmol/L (3.5-5.1); Protein, Total 6.9 g/dL (5.8-8.1); Sodium 135 mmol/L (136-145)
[2018-08-28] MEDS: Docusate 100 MG CAP PO SCH ×2 (08:33→20:28)
[2018-08-28] MEDS: Bumetanide 1 MG TAB PO SCH ×2 (08:33→15:14)
[2018-08-28] MEDS: Venlafaxine XR 37.5 MG CAP PO SCH (08:34)
[2018-08-28] MEDS: Spironolactone 25 MG TAB PO SCH (08:34)
[2018-08-28] MEDS: Aspirin 81 mg Enteric Coated Tablet PO SCH (08:34)
[2018-08-28] MEDS: Pregabalin 100 MG CAP PO SCH ×3 (08:34→20:28)
[2018-08-28] MEDS: Potassium Chloride 20 MEQ TAB PO SCH (08:35)
[2018-08-28] MEDS: Metoprolol Tartrate 25 MG TAB PO SCH ×2 (08:35→20:28)
[2018-08-28] MEDS ORDERED: Furosemide 40 MG TAB PO SCH (09:00)
[2018-08-28] MEDS ORDERED: Non-Formulary Item 1 EACH (Umeclidinium Brm/Vilanterol Tr [Anoro Ellipta] 1 INH) IH SCH (09:00)
[2018-08-28] MEDS: HYDROcodone/Acetaminophen 5/325 mg Tablet PO PRN (11:44)
--- NOTE | 2018-08-28 13:31 | HP ---
DATE OF ADMISSION: 08/27/2018 REASON FOR ADMISSION: Transferred from [facility] for skilled therapy. HISTORY OF PRESENT ILLNESS: This is a pleasant 68-year-old male with history of significant cardiovascular disease, COPD with oxygen dependency, hypertension, diastolic heart failure, and recent right intertrochanteric hip fracture that is seen today for admission for swing bed and residential with physical therapy, status post open reduction internal fixation done on 02/2018. The patient was previously in our facility from 08/07/2018 to 2017 undergoing physical therapy. bath mix operator physician was notified on the evening of 08/23/2018 that the patient was having shortness of breath and therefore the patient was transferred back to [facility] for further evaluation. CTA revealed bilateral effusions that have been chronic for patient. The patient was treated with furosemide for his congestive heart failure and then transferred back today for continued therapy. The patient is seen today and has no complaints. He states his shortness of breath has resolved. He states he is having regular bowel movements, but continues to be generally weak ever since his surgery. He has been able to stand and walk with a walker for a few steps in his room over the last few days while he was at [facility]. He states his pain has been well controlled with the hydrocodone. No other concerns at this time and no family at the bedside. PAST MEDICAL HISTORY: 1. Chronic atrial fibrillation on anticoagulation. 2. History of sick sinus syndrome, status post pacemaker. 3. Three vessel coronary artery disease. 4. Severe chronic obstructive pulmonary disease with oxygen dependency at 2 liters continuous. 5. Severe pulmonary hypertension. 6. Peripheral vascular disease with prior stenting. 7. Hyperlipidemia. 8. Diastolic heart failure. 9. Hypertension. 10. Chronic venous insufficiency. 11. Chronic back pain. 12. Chronic aortic stenosis, status post TAVR done 03/2018. 13. Chronic neuropathy. PAST SURGICAL HISTORY: 1. AV node ablation. 2. Multiple previous pacemaker placements. 3. History of lumbar surgery. 4. TAVR with bioprosthetic valve replacement. 5. History of thoracentesis for recurrent right pleural effusion. 6. Open reduction internal fixation of right intertrochanteric fracture. MEDICATIONS: 1. Anoro Ellipta 62.5-25 mcg 1 puff daily. 2. Bumex 2 mg twice daily. 3. Metoprolol 25 mg twice daily. 4. Lyrica 200 mg 3 times a day. 5. [place] 1-2 tabs 10/325 mg every 6 hours as needed. 6. Omeprazole 20 mg once daily. 7. Potassium chloride 20 mEq once daily. 8. Spironolactone 25 mg once daily. 9. Venlafaxine 75 mg once a day. 10. Aspirin 81 mg once daily. 11. Pradaxa 150 mg twice daily. 12. Atorvastatin 10 mg once daily. 13. Colace 100 mg twice daily. 14. Acetaminophen 650 mg every 4 hours as needed. 15. Aluminum hydroxide, magnesium hydroxide 30 mL every 6 hours as needed. 16. Albuterol, ipratropium 3 mL q.6h. scheduled. SOCIAL HISTORY: The patient lives in [place], [place], with his . He was previously living independently. He has about a [id number] history of smoking and quit 4 years ago. 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 He occasionally drinks alcohol, but not on a regular basis. Denies any illicit drug use. The patient has advanced directives with his as power of ip attorney and a current out of hospital DNR in place. FAMILY HISTORY: Noncontributory. REVIEW OF SYSTEMS: A 10-point review of systems is covered with the patient and is negative except as mentioned in the history of present illness. PHYSICAL EXAMINATION: VITAL SIGNS: Weight is 250 pounds, temperature 97.3, blood pressure 135/86, heart rate 82, respirations 20, O2 saturation 97% on 2 liters nasal cannula. GENERAL: The patient is alert and oriented x3. He is in no apparent distress. He is cooperative. HEENT: Pupils are equally round and reactive to light. Sclerae nonicteric. Oropharynx is moist without erythema or exudates. NECK: Supple, without lymphadenopathy or thyromegaly. HEART: Regular rate and rhythm. No murmurs. LUNGS: Good aeration with equal excursion. No wheezing, rales or rhonchi. ABDOMEN: Soft, nontender, nondistended with normoactive bowel sounds. EXTREMITIES: Reveal multiple scattered healing ecchymosis to bilateral upper extremities from prior IV placement. Bilateral lower extremities are noted to be cool distally with difficult to palpate pulses. Cap refill is between 3 and 5 seconds with noted chronic discoloration from venous stasis and chronic peripheral vascular disease. SKIN: Dry. NEUROLOGIC: Cranial nerves II-XII are grossly intact. No focal deficits. Positive for unsteady gait. MUSCULOSKELETAL: Positive for mild muscle atrophy to bilateral lower extremities, right hip incision is healed. LABORATORY IMAGING: White blood cell count is 8.6, hemoglobin 9.4, hematocrit 30.4, platelet count is 285. Complete metabolic panel with sodium of 135, potassium 3.5, chloride 95, bicarbonate 27, BUN 12, creatinine 0.77, total bilirubin is 0.6, AST 17, ALT 11, albumin is 3.0. No recent imaging. ASSESSMENT AND PLAN: 1. Generalized weakness and deconditioning. This is secondary to recent fall resulting in right hip fracture and subsequent open reduction internal fixation approximately 4 weeks ago. The patient was doing quite well with therapy prior to recent transfer. He will need to be reevaluated by PT and OT at this time. The patient has been approved for 7 days of therapy through his insurance. We will maximize these days as much as possible so that he can return home to independent living upon discharge. 2. Acute on chronic diastolic heart failure. The patient currently is on his home dose of diuretics and has not had any adjustments in this since recent hospitalization. He continues to be euvolemic and has no symptoms of volume overload, shortness of breath or dyspnea at this time. 3. Right intertrochanteric hip fracture status post open reduction internal fixation. The patient will continue with physical therapy and occupational therapy with weightbearing as tolerated and fall risk precautions in place. He is on DVT prophylaxis with his Pradaxa. He has already followed up with Dr. Reynolds approximately 2 weeks ago and has no further followup appointment scheduled at this time. 4. Microcytic anemia. This is likely multifactorial with some component of chronic disease as well as recent surgery. We will continue to monitor this closely and add a once daily, iron tablet to increase iron stores. 5. Hyponatremia. This is stable at this time and improved from last lab check. We will continue patient on his current regimen of medications. 6. Chronic atrial fibrillation. The patient will be continued on his Pradaxa and beta naida. He follows with Dr. Maldonado on an outpatient basis. He is currently rate controlled. 7. History of significant cardiovascular disease and valve replacement earlier this year with known peripheral vascular disease. The patient is high risk for rehospitalization, but is currently doing very well and stable. Of note, his lower extremities are normally discolored and cool to the touch. The patient has known severe peripheral vascular disease and this is his baseline. He has had multiple Doppler studies in the last year that were negative. 8. Chronic back pain. The patient will be continued on [place]. 9. Chronic obstructive pulmonary disease. The patient will be continued on his continuous oxygen at 2 liters as well as maintenance inhalers 10. Code status: The patient is DNR. DISPOSITION: The patient has been given 7 days from his insurance company for continued physical therapy and occupational therapy with plan to return home at discharge with home health care. We will maximize these days as much as possible, although he does continue to be high risk for rehospitalization given the severity of his chronic medical problems. ANNIKA
[2018-08-28 18:31] VITALS: BMI 35.9
[2018-08-28] MEDS: Atorvastatin Calcium 10 MG TAB PO SCH (20:28)
[2018-08-29] MEDS: VILANTEROL TR INH SCH (09:17)
[2018-08-29] MEDS: Bumetanide 1 MG TAB PO SCH ×2 (09:17→15:49)
[2018-08-29] MEDS: UMECLIDINIUM BRM INH SCH (09:17)
[2018-08-29] MEDS: Pregabalin 100 MG CAP PO SCH ×3 (09:18→20:51)
[2018-08-29] MEDS: Potassium Chloride 20 MEQ TAB PO SCH (09:18)
[2018-08-29] MEDS: Docusate 100 MG CAP PO SCH ×2 (09:18→20:51)
[2018-08-29] MEDS: Venlafaxine XR 37.5 MG CAP PO SCH (09:19)
[2018-08-29] MEDS: Spironolactone 25 MG TAB PO SCH (09:19)
[2018-08-29] MEDS: Aspirin 81 mg Enteric Coated Tablet PO SCH (09:19)
[2018-08-29] MEDS: Metoprolol Tartrate 25 MG TAB PO SCH ×2 (09:19→20:51)
[2018-08-29] MEDS: HYDROcodone/Acetaminophen 5/325 mg Tablet PO PRN (11:50)
[2018-08-29] MEDS: Atorvastatin Calcium 10 MG TAB PO SCH (20:50)
[2018-08-30] MEDS: VILANTEROL TR INH SCH (08:26)
[2018-08-30] MEDS: UMECLIDINIUM BRM INH SCH (08:26)
[2018-08-30] MEDS: Metoprolol Tartrate 25 MG TAB PO SCH ×2 (08:27→20:38)
[2018-08-30] MEDS: Venlafaxine XR 37.5 MG CAP PO SCH (08:27)
[2018-08-30] MEDS: Bumetanide 1 MG TAB PO SCH ×2 (08:27→16:15)
[2018-08-30] MEDS: Potassium Chloride 20 MEQ TAB PO SCH (08:28)
[2018-08-30] MEDS: Spironolactone 25 MG TAB PO SCH (08:28)
[2018-08-30] MEDS: Aspirin 81 mg Enteric Coated Tablet PO SCH (08:28)
[2018-08-30] MEDS: Pregabalin 100 MG CAP PO SCH ×4 (08:28→20:38)
[2018-08-30] MEDS: Docusate 100 MG CAP PO SCH ×2 (08:28→20:38)
[2018-08-30] MEDS: Atorvastatin Calcium 10 MG TAB PO SCH (20:38)
[2018-08-31] MEDS: UMECLIDINIUM BRM INH SCH (08:31)
[2018-08-31] MEDS: VILANTEROL TR INH SCH (08:31)
[2018-08-31] MEDS: Bumetanide 1 MG TAB PO SCH ×2 (08:32→16:40)
[2018-08-31] MEDS: Docusate 100 MG CAP PO SCH ×2 (08:32→20:44)
[2018-08-31] MEDS: Venlafaxine XR 37.5 MG CAP PO SCH (08:32)
[2018-08-31] MEDS: Spironolactone 25 MG TAB PO SCH (08:33)
[2018-08-31] MEDS: Pregabalin 100 MG CAP PO SCH ×3 (08:33→20:44)
[2018-08-31] MEDS: Potassium Chloride 20 MEQ TAB PO SCH (08:33)
[2018-08-31] MEDS: Aspirin 81 mg Enteric Coated Tablet PO SCH (08:33)
[2018-08-31] MEDS: Metoprolol Tartrate 25 MG TAB PO SCH ×2 (08:33→20:44)
[2018-08-31] MEDS ORDERED: Bumetanide 1 MG TAB PO SCH (13:45)
[2018-08-31] MEDS: Atorvastatin Calcium 10 MG TAB PO SCH (20:44)
[2018-09-01] MEDS: HYDROcodone/Acetaminophen 5/325 mg Tablet PO PRN ×2 (00:51→07:26)
[2018-09-01] MEDS: Bumetanide 1 MG TAB PO SCH ×2 (07:26→15:34)
[2018-09-01] MEDS: Docusate 100 MG CAP PO SCH ×2 (09:22→20:46)
[2018-09-01] MEDS: UMECLIDINIUM BRM INH SCH (09:22)
[2018-09-01] MEDS: Spironolactone 25 MG TAB PO SCH (09:22)
[2018-09-01] MEDS: VILANTEROL TR INH SCH (09:22)
[2018-09-01] MEDS: Aspirin 81 mg Enteric Coated Tablet PO SCH (09:22)
[2018-09-01] MEDS: Potassium Chloride 20 MEQ TAB PO SCH ×2 (09:22→17:15)
[2018-09-01] MEDS: Pregabalin 100 MG CAP PO SCH ×3 (09:23→20:45)
[2018-09-01] MEDS: Metoprolol Tartrate 25 MG TAB PO SCH ×2 (09:23→20:45)
[2018-09-01] MEDS: Venlafaxine XR 37.5 MG CAP PO SCH (09:23)
[2018-09-01 12:11] LABS: #Basophils 0.1 thou/uL (0.0-0.2); #Eosinphils 0.2 thou/uL (0.0-0.7); #Monocytes 1.1 thou/uL (0.11-0.59); #Neutrophils 7.9 thou/uL (1.40-6.50); %Basophils 0.6 % (0.0-1.0); %Eosinophils 2.1 % (0.0-10.0); %Monocytes 10.4 % (0.0-10.0); %Neutrophils 76.8 % (42.0-75.0); Hemoglobin 10.2 g/dL (14.0-18.0); Mean Corpuscular Hemoglobin 21.9 pg (27.0-31.0); Mean Corpuscular Volume 75.7 fL (78.0-98.0); Mean Platelet Volume 7.6 fL (7.4-10.4); Platelet Count 336 thou/uL (130-400); RBC Distribution Width 18.6 % (11.5-14.5); Red Blood Cell (RBC) Count 4.66 mill/uL (4.70-6.10); White Blood Cell (WBC) Count 10.3 thou/uL (4.8-10.8)
[2018-09-01 12:20] LABS: Anion Gap 16 mmol/L (10-20); BUN (Urea Nitrogen) 12 mg/dL (8.4-25.7); Calc. Creatinine Clearance 143 mL/min (70-130); Calcium 9.1 mg/dL (7.8-10.44); Carbon Dioxide 32 mmol/L (23-31); Chloride 89 mmol/L (98-107); Estimated GFR-MDRD Greater than 90; Glucose 103 mg/dL (80-115); Magnesium 1.9 mg/dL (1.6-2.6); Sodium 134 mmol/L (136-145)
[2018-09-01 14:23] LABS: Anisocytosis SLIGHT = 6-15 cells (100X) (0-5/hpf); Hypochromia SLIGHT = 6-15 cells (100X) (0-5/hpf); MDiff Complete? YES; Microcytosis SLIGHT = 6-15 cells (100X) (0-5/hpf); PLT Morphology Comment Appears Adequate
[2018-09-01 14:35] LABS: Potassium 2.8 mmol/L (3.5-5.1)
[2018-09-01] MEDS ORDERED: Potassium Chloride 20 MEQ TAB PO SCH ×2 (15:00→17:00)
[2018-09-01] MEDS: Atorvastatin Calcium 10 MG TAB PO SCH (20:46)
[2018-09-02 04:59] LABS: Hemoglobin 9.4 g/dL (14.0-18.0); Platelet Count 284 thou/uL (130-400)
[2018-09-02 05:15] LABS: Calc. Creatinine Clearance 157 mL/min (70-130); Estimated GFR-MDRD Greater than 90
[2018-09-02] MEDS: Bumetanide 1 MG TAB PO SCH ×2 (07:59→13:23)
[2018-09-02] MEDS: Potassium Chloride 20 MEQ TAB PO SCH ×2 (08:01→16:27)
[2018-09-02] MEDS: Pregabalin 100 MG CAP PO SCH ×3 (08:03→20:56)
[2018-09-02] MEDS: Docusate 100 MG CAP PO SCH ×2 (08:04→20:56)
[2018-09-02] MEDS: Venlafaxine XR 37.5 MG CAP PO SCH (08:04)
[2018-09-02] MEDS: VILANTEROL TR INH SCH (08:04)
[2018-09-02] MEDS: Metoprolol Tartrate 25 MG TAB PO SCH ×2 (08:04→20:56)
[2018-09-02] MEDS: Spironolactone 25 MG TAB PO SCH (08:04)
[2018-09-02] MEDS: Aspirin 81 mg Enteric Coated Tablet PO SCH (08:04)
[2018-09-02] MEDS: UMECLIDINIUM BRM INH SCH (08:04)
[2018-09-02 10:28] LABS: Anion Gap 16 mmol/L (10-20); BUN (Urea Nitrogen) 10 mg/dL (8.4-25.7); Calc. Creatinine Clearance 152 mL/min (70-130); Carbon Dioxide 33 mmol/L (23-31); Chloride 91 mmol/L (98-107); Estimated GFR-MDRD Greater than 90; Glucose 95 mg/dL (80-115); Potassium 3.5 mmol/L (3.5-5.1); Sodium 136 mmol/L (136-145)
[2018-09-02] MEDS: HYDROcodone/Acetaminophen 5/325 mg Tablet PO PRN (17:43)
[2018-09-02] MEDS: Atorvastatin Calcium 10 MG TAB PO SCH (20:56)
[2018-09-03] MEDS: Bumetanide 1 MG TAB PO SCH ×2 (06:07→14:08)
[2018-09-03] MEDS: VILANTEROL TR INH SCH (06:26)
[2018-09-03] MEDS: UMECLIDINIUM BRM INH SCH (06:26)
[2018-09-03] MEDS: Venlafaxine XR 37.5 MG CAP PO SCH (08:19)
[2018-09-03] MEDS: Docusate 100 MG CAP PO SCH ×2 (08:19→20:12)
[2018-09-03] MEDS: Potassium Chloride 20 MEQ TAB PO SCH ×2 (08:19→15:49)
[2018-09-03] MEDS: Aspirin 81 mg Enteric Coated Tablet PO SCH (08:19)
[2018-09-03] MEDS: Metoprolol Tartrate 25 MG TAB PO SCH ×2 (08:19→20:12)
[2018-09-03] MEDS: Spironolactone 25 MG TAB PO SCH (08:20)
[2018-09-03] MEDS: Pregabalin 100 MG CAP PO SCH ×3 (08:20→20:11)
[2018-09-03] MEDS ORDERED: Polyethylene Glycol 3350 17 GM Packet PO SCH ×2 (13:01→13:30)
[2018-09-03] MEDS ORDERED: Bisacodyl 10 MG SUPP PR PRN (13:05)
[2018-09-03] MEDS: HYDROcodone/Acetaminophen 5/325 mg Tablet PO PRN ×2 (15:48→20:15)
[2018-09-03] MEDS: Atorvastatin Calcium 10 MG TAB PO SCH (20:12)
[2018-09-04] MEDS: Bumetanide 1 MG TAB PO SCH ×2 (05:10→13:07)
[2018-09-04 05:40] LABS: Hemoglobin 9.7 g/dL (14.0-18.0); Platelet Count 325 thou/uL (130-400)
[2018-09-04 05:49] LABS: Anion Gap 15 mmol/L (10-20); BUN (Urea Nitrogen) 11 mg/dL (8.4-25.7); Calc. Creatinine Clearance 146 mL/min (70-130); Carbon Dioxide 31 mmol/L (23-31); Chloride 91 mmol/L (98-107); Estimated GFR-MDRD Greater than 90; Glucose 96 mg/dL (80-115); Potassium 3.2 mmol/L (3.5-5.1); Sodium 134 mmol/L (136-145)
[2018-09-04] MEDS: UMECLIDINIUM BRM INH SCH (06:52)
[2018-09-04] MEDS: VILANTEROL TR INH SCH (06:52)
[2018-09-04] MEDS: Pregabalin 100 MG CAP PO SCH ×2 (08:07→15:19)
[2018-09-04] MEDS: HYDROcodone/Acetaminophen 5/325 mg Tablet PO PRN (08:08)
[2018-09-04] MEDS: Venlafaxine XR 37.5 MG CAP PO SCH (08:09)
[2018-09-04] MEDS: Spironolactone 25 MG TAB PO SCH (08:10)
[2018-09-04] MEDS: Aspirin 81 mg Enteric Coated Tablet PO SCH (08:10)
[2018-09-04] MEDS: Potassium Chloride 20 MEQ TAB PO SCH (08:10)
[2018-09-04] MEDS: Metoprolol Tartrate 25 MG TAB PO SCH (08:10)
[2018-09-04] MEDS: Docusate 100 MG CAP PO SCH (08:16)
[2018-09-04] MEDS ORDERED: Polyethylene Glycol 3350 17 GM Packet PO SCH (09:00)
[2018-09-04 09:29] VITALS: BP 125/72; TEMP 96.7
--- NOTE | 2018-09-04 12:47 | DIS ---
DATE OF ADMISSION: 08/27/2018 DATE OF DISCHARGE: 09/04/2018 FINAL DIAGNOSIS: Status post open reduction and internal fixation of right intertrochanteric fracture. SECONDARY DIAGNOSES: 1. Acute on chronic systolic heart failure. 2. Severe chronic obstructive pulmonary disease with hypoxemia. 3. Severe deconditioning and generalized weakness. 4. Constipation. 5. Hypokalemia. 6. Chronic anemia. 7. Severe peripheral vascular disease. 8. Chronic atrial fibrillation on anticoagulation. 9. Coronary artery disease. 10. Hyperlipidemia. 11. Hypertension. 12. Chronic back pain and neuropathy. HOSPITAL COURSE: This is a 68-year-old male with multiple medical problems that was admitted back to [facility] on 08/27/2018 status post acute hospitalization for acute on chronic systolic heart failure. The patient was previously in our facility undergoing physical therapy and occupational therapy for a recent hip fracture surgery that was done on 07/31/2018. The patient is seen today and is noted to still have significant immobility. He is only able to ambulate 5-10 steps at a time without getting significantly winded. Additionally, he does require some assistance with standing and bathing and his ADLs. Christina had initially authorize 7 days for continued therapy and the patient is adamant that he is ready to return home at this time. I have discussed with him and his with the nursing team present at length my concerns for his discharge today and my preference for him to stay until he is more independent on his ADLs as he will have minimal assistance once he returns home. The patient again expressed his adamant desire that he is to return home today and that he no longer would like to be in the hospital. The patient is aware of the risks of being discharged too soon as well as much higher risk for rehospitalization or complications as well as fall risk in the home. He has verbalized understanding of these risks today. Home health care as well as a home medical supplies have been arranged for the patient through [facility] and [facility]. In addition, he does have a caregiver that comes by daily to assist in his care. DISCHARGE MEDICATIONS: 1. Anora Ellipta 62.5-25 mcg 1 puff daily. 2. Bumex 2 mg twice daily. 3. Metoprolol 25 mg twice daily. 4. Lyrica 200 mg 3 times a day. 5. [place] 1 tab 10/325 mg every 6 hours as needed. 6. Omeprazole 20 mg once daily. 7. Potassium chloride 20 mEq 3 times a day. 8. Spironolactone 25 mg once daily. 9. Venlafaxine 75 mg once a day. 10. Aspirin 81 mg once daily. 11. Pradaxa 150 mg twice daily. 12. Atorvastatin 10 mg once daily. 13. Colace 100 mg twice daily. 14. Acetaminophen 650 mg every 4 hours as needed. 15. Magnesium supplement every 6 hours as needed. 16. Albuterol/ipratropium 3 mL inhaled per nebulizer every 6 hours as needed. 17. Nitroglycerin 0.5 mg tab as needed for chest pain. DIET: Heart healthy diet. ACTIVITIES: The patient continues to be a high fall risk. He has been recommended to primarily uses a wheelchair and only use a walker with assistance. FOLLOWUP: The patient will schedule follow up with his primary care physician, Dr. Armenta in 1-2 weeks as well as keep any standing appointments with specialist as scheduled. ANNIKA
== END 2018-09-04 16:15 | disposition home health service (06) | DRG 559 ==
LOC: MADMS 19:09
PROVIDERS: ADMIT Family Medicine; ATTEND Family Medicine
DX: S72.141D Displaced intertrochanteric fracture of right femur, subsequent encounter for closed fracture with routine healing (principal); I50.23 Acute on chronic systolic (congestive) heart failure; E87.1 Hypo-osmolality and hyponatremia; I11.0 Hypertensive heart disease with heart failure; J44.9 Chronic obstructive pulmonary disease, unspecified; R09.02 Hypoxemia; K59.00 Constipation, unspecified; E87.6 Hypokalemia; D64.9 Anemia, unspecified; I73.9 Peripheral vascular disease, unspecified; I48.2 Chronic atrial fibrillation; Z79.01 Long term (current) use of anticoagulants; I25.10 Atherosclerotic heart disease of native coronary artery without angina pectoris; E78.5 Hyperlipidemia, unspecified; G89.29 Other chronic pain; M54.9 Dorsalgia, unspecified; G62.9 Polyneuropathy, unspecified; Z91.81 History of falling; Z95.0 Presence of cardiac pacemaker; I27.20 Pulmonary hypertension, unspecified; Z95.2 Presence of prosthetic heart valve; I87.2 Venous insufficiency (chronic) (peripheral); Z87.891 Personal history of nicotine dependence; Z66 Do not resuscitate
CPT/HCPCS: 36415; 80048; 80053; 82565; 83735; 83880; 85007; 85014; 85018; 85025; 85027; 85049; 94640; G8978-GP-CL; G8979-GP-CJ; G8987-GO-CK; G8988-GO-CI; J7620